=== PATIENT | male | born 1975 | race Caucasian/White ===

== ENCOUNTER → 2016-04-21 | Outpatient (REF) | payer BC ==
[~2016-04-21] MED LIST: ACTO15TA; AZAT5TAB PO; AZATPOW; BACT800T5 PO; DO NOT TAKE; FERR325T3 PO; GLIP2.5T6; GLIP5TAB8 PO; IBUP80TA PO; LIALDA; METF1000 PO; METF500T PO; METF500T4; OMEP40CA2 PO; PERC5TAB6 PO; PRIL20CA; PROAIR; SULF1TAB30 PO; SYMB80AE; [UNRECOGNIZED DRUG - OTHER]
== END ==
LOC: M LAB REF 12:29
PROVIDERS: ATTEND Internal Medicine
DX: K51.90 Ulcerative colitis, unspecified, without complications (principal)

== ENCOUNTER → 2016-06-18 | Outpatient (REF) | payer BC ==
[2016-06-18 18:00] LABS: BASO % 0.5 % (0.0-1.0); EOS # 0.1 K/mm3 (0.0-0.50); EOS % 1.4 % (0.0-3.0); LARGE UNSTAINED CELL # 0.2 K/mm3 (0.0-0.4); MEAN CORPUSCULAR HGB CONC 33.9 g/dl (32.0-36.5); MEAN CORPUSCULAR VOLUME 88.6 fl (80.0-96.0); MONO # 0.5 K/mm3 (0.0-0.8); MONO % 6.9 % (0.0-5.0); NEUTROPHILS # 3.3 K/mm3 (1.8-7.7); NEUTROPHILS % 48.3 % (36.0-66.0); PLATELET COUNT, AUTOMATED 220 k/mm3 (150-450); RED CELL DISTRIBUTION WIDTH 12.4 % (11.5-14.5); WHITE BLOOD COUNT 6.9 K/mm3 (4.0-10.0)
[2016-06-18 19:07] LABS: ALT/SGPT 68 U/L (12-78); AST/SGOT 23 U/L (15-37)
== END ==
LOC: M LABNEURO 17:16
PROVIDERS: ATTEND Psychiatry & Neurology Neurology
DX: G43.909 Migraine, unspecified, not intractable, without status migrainosus (principal)

== ENCOUNTER → 2016-08-13 | Outpatient (REF) | payer BC | LOC: M LAB REF 13:11 | PROVIDERS: ATTEND Internal Medicine | DX: K51.90 Ulcerative colitis, unspecified, without complications (principal) ==

== ENCOUNTER → 2016-11-16 | Outpatient (REF) | payer BC ==
[~2016-11-16] MED LIST changes: +AZAT50TA2 PO; -AZAT5TAB PO; -METF1000 PO; +METF10004 PO; -METF500T PO; +METF500T13 PO; +PERC5TAB12 PO; -PERC5TAB6 PO
== END ==
LOC: M LAB REF 18:15
PROVIDERS: ATTEND Internal Medicine
DX: K51.90 Ulcerative colitis, unspecified, without complications (principal)

== ENCOUNTER → 2016-12-25 | Outpatient (REF) | payer BC ==
[2016-12-25 10:14] LABS: BASO % 0.2 % (0.0-1.0); EOS # 0.1 K/mm3 (0.0-0.50); EOS % 1.5 % (0.0-3.0); LARGE UNSTAINED CELL # 0.2 K/mm3 (0.0-0.4); LARGE UNSTAINED CELL % 3.8 % (0.0-4.0); LYMPH # 1.8 K/mm3 (1.5-4.5); LYMPH % 37.9 % (24.0-44.0); MEAN CORPUSCULAR HEMOGLOBIN 32.5 pg (27.0-33.0); MEAN CORPUSCULAR HGB CONC 35.5 g/dl (32.0-36.5); MEAN CORPUSCULAR VOLUME 91.6 fl (80.0-96.0); MONO # 0.3 K/mm3 (0.0-0.8); MONO % 6.9 % (0.0-5.0); NEUTROPHILS # 2.4 K/mm3 (1.8-7.7); NEUTROPHILS % 49.7 % (36.0-66.0); PLATELET COUNT, AUTOMATED 199 k/mm3 (150-450); RED CELL DISTRIBUTION WIDTH 12.3 % (11.5-14.5); WHITE BLOOD COUNT 4.8 K/mm3 (4.0-10.0)
[2016-12-25 10:38] LABS: ALBUMIN 3.7 GM/DL (3.2-5.2); ALBUMIN/GLOBULIN RATIO 1.09 (1.00-1.93); ALKALINE PHOSPHATASE 50 U/L (45-117); ALT/SGPT 60 U/L (12-78); ANION GAP 9 MEQ/L (8-16); AST/SGOT 20 U/L (15-37); BILIRUBIN,TOTAL 0.3 MG/DL (0.2-1.0); BLOOD UREA NITROGEN 10 MG/DL (7-18); CALCIUM LEVEL 8.4 MG/DL (8.5-10.1); CARBON DIOXIDE LEVEL 24 MEQ/L (21-32); CHLORIDE LEVEL 110 MEQ/L (98-107); CREATININE FOR GFR 0.94 MG/DL (0.70-1.30); GLOMERULAR FILTRATION RATE > 60.0 (>60); GLUCOSE, FASTING 196 MG/DL (70-105); POTASSIUM SERUM 4.7 MEQ/L (3.5-5.1); SODIUM LEVEL 143 MEQ/L (136-145); TOTAL PROTEIN 7.1 GM/DL (6.4-8.2)
== END ==
LOC: M LABNEURO 09:33
PROVIDERS: ATTEND Psychiatry & Neurology Neurology
DX: G43.909 Migraine, unspecified, not intractable, without status migrainosus (principal)

== ENCOUNTER → 2017-01-05 | Outpatient (REF) | payer BC | LOC: M LAB REF 12:01 | PROVIDERS: ATTEND Internal Medicine | DX: K51.90 Ulcerative colitis, unspecified, without complications (principal) ==

== ENCOUNTER → 2017-05-25 | Outpatient (REF) | payer BC ==
[2017-05-25 20:27] LABS: C REACTIVE PROTEIN QUANTITATIV < 0.30 MG/DL (0.00-0.30)
== END ==
LOC: M LAB REF 17:34
DX: K51.90 Ulcerative colitis, unspecified, without complications (principal)
CPT/HCPCS: 86140

== ENCOUNTER → 2017-08-27 | Outpatient (REF) | payer BC ==
[2017-08-27 13:01] LABS: C REACTIVE PROTEIN QUANTITATIV 0.35 MG/DL (0.00-0.30)
[2017-09-01 17:41] LABS: QUANTIFERON GOLD TB Negative (Negative); TB Test (QFT) Antigen 0.06 IU/mL (.); TB Test (QFT) Antigen Minus Ni 0.01 IU/mL (.); TB Test (QFT) Mitogen 5.88 IU/mL (.); TB Test (QFT) Nil 0.05 IU/mL (.)
== END ==
LOC: M LAB REF 12:18
DX: K51.90 Ulcerative colitis, unspecified, without complications (principal)
CPT/HCPCS: 86140

== ENCOUNTER → 2018-01-18 | Outpatient (REF) | payer BC ==
[2018-01-18 13:30] LABS: C REACTIVE PROTEIN QUANTITATIV < 0.30 MG/DL (0.00-0.30)
== END ==
LOC: M LAB REF 13:00
DX: K51.90 Ulcerative colitis, unspecified, without complications (principal)

== ENCOUNTER → 2018-05-10 | Outpatient (REF) | payer BC | LOC: M LAB REF 12:13 | PROVIDERS: ATTEND Internal Medicine | DX: K51.90 Ulcerative colitis, unspecified, without complications (principal) ==

== ENCOUNTER → 2018-06-06 | Outpatient (REF) | payer BC ==
[2018-06-06 18:52] LABS: INFLUENZA A AMPLIFICATION NEGATIVE (NEGATIVE); INFLUENZA B AMPLIFICATION NEGATIVE (NEGATIVE)
== END ==
LOC: M LAB REF 16:53
PROVIDERS: ATTEND Nurse Practitioner Adult Health
DX: J06.9 Acute upper respiratory infection, unspecified (principal)

== ENCOUNTER → 2018-06-29 | Outpatient (CLI) | payer BC ==
--- NOTE | 2018-06-29 14:09 | REP ---
Clinical: Asthma . Comparison: 03/21/2012 . Technique: PA and lateral. Findings: The mediastinum and cardiac silhouette are normal. The lung arechiga are clear and without acute consolidation, effusion, or pneumothorax. The skeletal structures are intact and normal. Impression: 1. No acute cardiopulmonary process. Electronically Signed by Royer Cohn MD 06/29/2018 02:01 P
== END ==
LOC: M WUC 11:16
PROVIDERS: ATTEND Internal Medicine
DX: J45.901 Unspecified asthma with (acute) exacerbation (principal)

== ENCOUNTER → 2018-07-15 | Outpatient (CLI) | payer BC ==
--- NOTE | 2018-07-15 10:01 | REP ---
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 Comparison is 12/19/2015. There is no cholelithiasis, gallbladder wall thickening or pericholecystic fluid. There is no intrahepatic or extrahepatic biliary duct dilatation. The common biliary duct measures 3.7 mm in diameter. The hepatic parenchyma demonstrates mild fatty infiltration. 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 The visualized hepatic parenchyma is unremarkable. There is no right renal calculus, hydronephrosis, mass or cyst. The right kidney is normal size measuring 13.3 x 6.5 x 5.8 cm. The visualized aorta demonstrates no aneurysm. There is no right upper quadrant ascites. The study is of limited quality because of interfering bowel gas. Impression: Limited study because of interfering bowel gas. Mild fatty infiltration of the liver. Otherwise, negative abdominal right upper quadrant ultrasound. Electronically Signed by Saji Marti MD 07/15/2018 09:53 A
== END ==
LOC: M RAD 08:25
PROVIDERS: ATTEND Internal Medicine Gastroenterology
DX: K51.90 Ulcerative colitis, unspecified, without complications (principal); R94.5 Abnormal results of liver function studies; K21.9 Gastro-esophageal reflux disease without esophagitis; K75.81 Nonalcoholic steatohepatitis (NASH); E55.9 Vitamin D deficiency, unspecified; Q43.3 Congenital malformations of intestinal fixation

== ENCOUNTER → 2018-08-31 | Outpatient (CLI) | payer BC ==
[2018-08-31 11:06] LABS: HEMATOCRIT 46.2 % (42.0-52.0); HEMOGLOBIN 15.8 g/dl (13.5-17.5); MEAN CORPUSCULAR HEMOGLOBIN 31.1 pg (27.0-33.0); MEAN CORPUSCULAR HGB CONC 34.2 g/dl (32.0-36.5); MEAN CORPUSCULAR VOLUME 90.9 fl (80.0-96.0); PLATELET COUNT, AUTOMATED 193 10^3/uL (150-450); RED BLOOD COUNT 5.08 10^6/uL (4.30-6.10); WHITE BLOOD COUNT 5.1 10^3/uL (4.0-10.0)
[2018-08-31 11:15] LABS: INR 1.03; PROTHROMBIN TIME 13.7 SECONDS (12.1-14.4)
[2018-08-31 11:20] LABS: ALBUMIN 3.9 GM/DL (3.2-5.2); ALT/SGPT 92 U/L (12-78); BILIRUBIN,TOTAL 0.6 MG/DL (0.2-1.0); BLOOD UREA NITROGEN 12 MG/DL (7-18); CALCIUM LEVEL 8.4 MG/DL (8.5-10.1); CARBON DIOXIDE LEVEL 29 MEQ/L (21-32); CHLORIDE LEVEL 106 MEQ/L (98-107); CREATININE FOR GFR 0.85 MG/DL (0.70-1.30); GLOMERULAR FILTRATION RATE > 60.0 (>60); GLUCOSE, FASTING 171 MG/DL (70-100); POTASSIUM SERUM 4.5 MEQ/L (3.5-5.1); SODIUM LEVEL 142 MEQ/L (136-145); TOTAL PROTEIN 7.4 GM/DL (6.4-8.2)
[2018-08-31 11:26] LABS: TOTAL 25(OH) VITAMIN D 17.7 NG/ML (30.0-100.0)
[2018-08-31 11:27] LABS: VITAMIN B12 LEVEL 579 PG/ML (247-911)
[2018-08-31 11:34] LABS: ERYTHROCYTE SEDIMENTATION RATE 3 mm/hr (0-15)
== END ==
LOC: M SMT 08:06
PROVIDERS: ATTEND Internal Medicine Gastroenterology
DX: K51.90 Ulcerative colitis, unspecified, without complications (principal); R94.5 Abnormal results of liver function studies; K21.9 Gastro-esophageal reflux disease without esophagitis

== ENCOUNTER → 2018-12-02 | Outpatient (CLI) | payer BC ==
[~2018-12-02] MED LIST changes: -OMEP40CA2 PO; +OMEP40CA97 PO
[2018-12-02 17:55] LABS: HEMATOCRIT 43.6 % (42.0-52.0); HEMOGLOBIN 15.3 g/dl (13.5-17.5); MEAN CORPUSCULAR HEMOGLOBIN 32.3 pg (27.0-33.0); MEAN CORPUSCULAR HGB CONC 35.1 g/dl (32.0-36.5); PLATELET COUNT, AUTOMATED 216 10^3/uL (150-450); RED BLOOD COUNT 4.74 10^6/uL (4.30-6.10); WHITE BLOOD COUNT 6.7 10^3/uL (4.0-10.0)
[2018-12-02 17:58] LABS: ALT/SGPT 59 U/L (12-78); BILIRUBIN,TOTAL 0.3 MG/DL (0.2-1.0); BLOOD UREA NITROGEN 13 MG/DL (7-18); C REACTIVE PROTEIN QUANTITATIV < 0.30 MG/DL (0.00-0.30); CALCIUM LEVEL 8.6 MG/DL (8.5-10.1); CARBON DIOXIDE LEVEL 27 MEQ/L (21-32); CHLORIDE LEVEL 107 MEQ/L (98-107); CREATININE FOR GFR 0.88 MG/DL (0.70-1.30); GLOMERULAR FILTRATION RATE > 60.0 (>60); GLUCOSE, FASTING 199 MG/DL (70-100); POTASSIUM SERUM 4.1 MEQ/L (3.5-5.1); SODIUM LEVEL 140 MEQ/L (136-145); TOTAL PROTEIN 7.2 GM/DL (6.4-8.2)
[2018-12-02 19:17] LABS: ERYTHROCYTE SEDIMENTATION RATE 4 mm/hr (0-15)
== END ==
LOC: M SMT 14:46
PROVIDERS: ATTEND Internal Medicine Gastroenterology
DX: K51.90 Ulcerative colitis, unspecified, without complications (principal)

== ENCOUNTER → 2019-02-15 | Outpatient (CLI) | payer BC ==
[2019-02-15 16:15] LABS: HEMATOCRIT 47.3 % (42.0-52.0); HEMOGLOBIN 15.7 g/dl (13.5-17.5); MEAN CORPUSCULAR HEMOGLOBIN 30.6 pg (27.0-33.0); MEAN CORPUSCULAR HGB CONC 33.2 g/dl (32.0-36.5); MEAN CORPUSCULAR VOLUME 92.2 fl (80.0-96.0); PLATELET COUNT, AUTOMATED 238 10^3/uL (150-450); RED BLOOD COUNT 5.13 10^6/uL (4.30-6.10); WHITE BLOOD COUNT 7.7 10^3/uL (4.0-10.0)
[2019-02-15 16:21] LABS: ALBUMIN 4.1 GM/DL (3.2-5.2); ALT/SGPT 71 U/L (12-78); BILIRUBIN,TOTAL 0.5 MG/DL (0.2-1.0); BLOOD UREA NITROGEN 13 MG/DL (7-18); C REACTIVE PROTEIN QUANTITATIV < 0.30 MG/DL (0.00-0.30); CALCIUM LEVEL 9.4 MG/DL (8.5-10.1); CARBON DIOXIDE LEVEL 27 MEQ/L (21-32); CHLORIDE LEVEL 106 MEQ/L (98-107); CREATININE FOR GFR 0.85 MG/DL (0.70-1.30); GLOMERULAR FILTRATION RATE > 60.0 (>60); GLUCOSE, FASTING 195 MG/DL (70-100); POTASSIUM SERUM 4.2 MEQ/L (3.5-5.1); SODIUM LEVEL 139 MEQ/L (136-145); TOTAL PROTEIN 7.5 GM/DL (6.4-8.2)
[2019-02-15 16:59] LABS: ERYTHROCYTE SEDIMENTATION RATE 3 mm/hr (0-15)
== END ==
LOC: M SMT 13:09
PROVIDERS: ATTEND Internal Medicine Gastroenterology
DX: K51.90 Ulcerative colitis, unspecified, without complications (principal)

== ENCOUNTER → 2019-05-06 | Outpatient (REF) | payer BC | LOC: M SFHCLERA 17:04 | PROVIDERS: ATTEND Nurse Practitioner Family | DX: J00 Acute nasopharyngitis [common cold] (principal) ==

== ENCOUNTER 2019-07-19 19:26 | Emergency (ER) | payer BC ==
[~2019-07-19] VITALS: Ht 182.9 cm; Wt 107.3 kg
[2019-07-19] MEDS ORDERED: TOPI50TA9 PO (19:39)
[2019-07-19] MEDS ORDERED: METF-791 PO (19:39)
[2019-07-19] MEDS ORDERED: METO1TAB32 PO (19:39)
[2019-07-19] MEDS ORDERED: SYMB16INH INH (19:40)
[2019-07-19] MEDS ORDERED: TRUL0.5I PO (19:40)
[2019-07-19] MEDS ORDERED: VITA200012 PO (19:40)
[2019-07-19] MEDS ORDERED: RIZA10TA58 PO (19:40)
[2019-07-19] MEDS ORDERED: GABA-843 PO (19:40)
[2019-07-19] MEDS ORDERED: INFL10VL IV (19:40)
[2019-07-19] MEDS ORDERED: PROAAER10 INH (19:40)
[2019-07-19] MEDS ORDERED: KETOROLAC 30 MG/ML 1ML VIAL (J1885 PER 15MG) IV ONE (20:00)
[2019-07-19] MEDS ORDERED: NS 1,000 ML IV ONE (20:00)
[2019-07-19 20:04] LABS: BASO # 0.1 10^3/uL (0.0-0.2); BASO % 0.5 % (0.0-1.0); EOS # 0.1 10^3/uL (0.0-0.5); EOS % 0.9 % (0.0-3.0); HEMATOCRIT 44.1 % (42.0-52.0); HEMOGLOBIN 15.3 g/dl (13.5-17.5); LYMPH % 32.4 % (24.0-44.0); MEAN CORPUSCULAR HEMOGLOBIN 30.7 pg (27.0-33.0); MEAN CORPUSCULAR HGB CONC 34.7 g/dl (32.0-36.5); MEAN CORPUSCULAR VOLUME 88.6 fl (80.0-96.0); MONO # 0.6 10^3/uL (0.0-0.8); MONO % 6.5 % (0.0-5.0); NEUTROPHILS # 5.5 10^3/uL (1.5-8.5); NEUTROPHILS % 59.4 % (36.0-66.0); PLATELET COUNT, AUTOMATED 233 10^3/uL (150-450); RED BLOOD COUNT 4.98 10^6/uL (4.30-6.10); WHITE BLOOD COUNT 9.2 10^3/uL (4.0-10.0)
[2019-07-19 20:32] LABS: ALBUMIN 4.2 GM/DL (3.2-5.2); BILIRUBIN,DIRECT 0.1 MG/DL (0.0-0.2); BILIRUBIN,TOTAL 0.4 MG/DL (0.2-1.0); TOTAL PROTEIN 7.6 GM/DL (6.4-8.2)
--- NOTE | 2019-07-19 20:33 | REPVR ---
PROCEDURE INFORMATION: Exam: CT Abdomen And Pelvis Without Contrast Exam date and time: 07/19/2019 8:19 PM Age: 44 years old Clinical indication: Abdominal pain; Flank; Right; Additional info: R flank pain TECHNIQUE: Imaging protocol: Computed tomography of the abdomen and pelvis without contrast. Radiation optimization: All CT scans at this facility use at least one of these dose optimization techniques: automated exposure control; mA and/or kV adjustment per patient size (includes targeted exams where dose is matched to clinical indication); or iterative reconstruction. COMPARISON: LIVER US 07/15/2018 8:37 AM FINDINGS: Liver: Normal. No mass. Gallbladder and bile ducts: Normal. No calcified stones. No ductal dilation. Pancreas: Diffuse pancreatic atrophy. Spleen: There is mild splenomegaly with a maximum span of 14 centimeters. No focal abnormalities demonstrated. Adrenals: Normal. No mass. Kidneys and ureters: Punctate nonobstructive calculus lower pole right kidney. There is a 4mm. obstructive ureteral calculus located distal right resulting in [id number] proximal hydroureteronephrosis. There is minimal periureteral and perinephric stranding. No urinoma demonstrated. Stomach and bowel: Mural stratification demonstrated in the rectosigmoid colon and to a lesser degree the left colon likely related to patient body habitus and lack of distention. Clinical correlation to exclude changes related to chronic colitis suggested. Appendix: No evidence of appendicitis. Intraperitoneal space: Unremarkable. No free air. No significant fluid collection. Vasculature: Unremarkable. No abdominal aortic aneurysm. Lymph nodes: Unremarkable. No enlarged lymph nodes. Bladder: Unremarkable as visualized. Reproductive: The prostate gland demonstrates mild hyperplasia. Bones/joints: [id number] central spinal stenosis L3-L4 and L4-L5. Soft tissues: There is a small umbilical hernia. There is no evidence of incarceration. IMPRESSION: 1. There is mild splenomegaly with a maximum span of 14 centimeters. No focal abnormalities demonstrated. 2. Diffuse pancreatic atrophy. 3. Punctate nonobstructive calculus lower pole right kidney. 4. There is a 4mm. obstructive ureteral calculus located distal right resulting in [id number] proximal hydroureteronephrosis. There is minimal periureteral and perinephric stranding. No urinoma demonstrated. 5. Mild prostatic hyperplasia. 6. Mural stratification demonstrated in the rectosigmoid colon and to a lesser degree the left colon likely related to patient body habitus and lack of distention. Clinical correlation to exclude changes related to chronic colitis suggested. Electronically signed by: Alexei Joseph On 07/19/2019 20:33:52 PM
[2019-07-19 20:58] VITALS: BP 135/80
[2019-07-19] MEDS ORDERED: KETO10TAB PO (21:04)
[2019-07-19] MEDS ORDERED: FLOM0.4C39 PO (21:04)
[2019-07-19] MEDS ORDERED: TAMSULOSIN 0.4 MG CAP PO ONE (21:15)
[2019-07-19] MEDS ORDERED: NORCO 5/325MG TABLET (BULK FOR ED) PO ONE (21:15)
--- NOTE | 2019-07-21 06:33 | ED PDOC ---
Post-Departure Follow-Up dr gómez faxed formal report of ct abd/p for fu Stefano Cedillo MD Jul 21, 2019 06:32
== END 2019-07-19 21:21 | disposition home or self-care (01) ==
LOC: M ED 19:26
DX: N40.0 Benign prostatic hyperplasia without lower urinary tract symptoms (principal); N20.0 Calculus of kidney; R16.1 Splenomegaly, not elsewhere classified; E11.9 Type 2 diabetes mellitus without complications; I10 Essential (primary) hypertension; J45.909 Unspecified asthma, uncomplicated; G43.909 Migraine, unspecified, not intractable, without status migrainosus; K51.90 Ulcerative colitis, unspecified, without complications; Z79.84 Long term (current) use of oral hypoglycemic drugs; Z79.899 Other long term (current) drug therapy
CPT/HCPCS: 74176; 80047; 80076; 81001; 83690; 85025; 96361; 96374; 99284; J1885

== ENCOUNTER → 2019-07-25 | Outpatient (REF) | payer BC ==
[~2019-07-25] MED LIST changes: +FLOM0.4C39 PO; +GABA-843 PO; +INFL10VL IV; +KETO10TAB PO; +METF-791 PO; +METO1TAB32 PO; +PROAAER10 INH; +RIZA10TA58 PO; +SYMB16INH INH; +TOPI50TA9 PO; +TRUL0.5I PO; +VITA200012 PO
== END ==
LOC: M LAB REF 12:48
PROVIDERS: ATTEND Internal Medicine
DX: K51.90 Ulcerative colitis, unspecified, without complications (principal)

== ENCOUNTER → 2019-08-15 | Outpatient (REF) | payer BC ==
[~2019-08-15] MED LIST changes: +GABA-282 PO; -GABA-843 PO; -METF-791 PO; +METF-838 PO
[2019-08-24 00:06] LABS: CA Hydro Phos 10 % (.); Ca Ox Monohydrate 40 % (.); Size 4x3 mm (.)
== END ==
LOC: M SMT 12:50
PROVIDERS: ATTEND Nurse Practitioner Women's Health
DX: N20.0 Calculus of kidney (principal)

== ENCOUNTER → 2019-09-12 | Outpatient (REF) | payer BC ==
[~2019-09-12] MED LIST changes: -GABA-282 PO; +GABA-843 PO
== END ==
LOC: M LAB REF 15:58
PROVIDERS: ATTEND Internal Medicine
DX: K51.90 Ulcerative colitis, unspecified, without complications (principal)

== ENCOUNTER → 2020-03-03 | Outpatient (CLI) | payer SELFPAY | LOC: M LABSMTC 10:04 | PROVIDERS: ATTEND Pediatrics | DX: Z20.828 Contact with and (suspected) exposure to other viral communicable diseases (principal) ==

== ENCOUNTER → 2020-03-21 | Outpatient (REF) | payer BC | LOC: M LAB REF 16:16 | PROVIDERS: ATTEND Internal Medicine | DX: K51.90 Ulcerative colitis, unspecified, without complications (principal) ==

== ENCOUNTER → 2020-03-21 | Outpatient (REF) | payer BC | LOC: M LAB REF 17:19 | PROVIDERS: ATTEND Surgery | DX: L72.3 Sebaceous cyst (principal) ==

== ENCOUNTER 2020-06-03 01:19 | Emergency (ER) | payer BC ==
[~2020-06-03] VITALS: Ht 182.9 cm; Wt 105.7 kg
[~2020-06-03 01:19] MED LIST changes: +GABA-282 PO; -GABA-843 PO
[2020-06-03] MEDS ORDERED: NS 1,000 ML IV ONE (01:45)
[2020-06-03] MEDS ORDERED: TAMSULOSIN 0.4 MG CAP PO ONE (01:45)
[2020-06-03] MEDS ORDERED: KETOROLAC 30 MG/ML 1ML VIAL IV ONE (01:45)
[2020-06-03 02:06] LABS: BASO % 0.5 % (0.0-1.0); EOS # 0.1 10^3/uL (0.0-0.5); EOS % 1.6 % (0.0-3.0); HEMATOCRIT 46.7 % (42.0-52.0); HEMOGLOBIN 15.6 g/dl (13.5-17.5); LYMPH # 3.3 10^3/uL (1.5-5.0); LYMPH % 37.6 % (24.0-44.0); MEAN CORPUSCULAR HEMOGLOBIN 30.2 pg (27.0-33.0); MEAN CORPUSCULAR HGB CONC 33.4 g/dl (32.0-36.5); MEAN CORPUSCULAR VOLUME 90.5 fl (80.0-96.0); MONO # 0.7 10^3/uL (0.0-0.8); MONO % 7.9 % (2.0-8.0); NEUTROPHILS # 4.5 10^3/uL (1.5-8.5); NEUTROPHILS % 52.2 % (36.0-66.0); PLATELET COUNT, AUTOMATED 233 10^3/uL (150-450); RED BLOOD COUNT 5.16 10^6/uL (4.30-6.10); WHITE BLOOD COUNT 8.7 10^3/uL (4.0-10.0)
--- NOTE | 2020-06-03 02:18 | REPVR ---
PROCEDURE INFORMATION: Exam: CT Abdomen And Pelvis Without Contrast Exam date and time: 06/03/2020 2:02 AM Age: 44 years old Clinical indication: Abdominal pain; Flank; Left; Additional info: Flank pain / suspected ureterolith TECHNIQUE: Imaging protocol: Computed tomography of the abdomen and pelvis without contrast. Radiation optimization: All CT scans at this facility use at least one of these dose optimization techniques: automated exposure control; mA and/or kV adjustment per patient size (includes targeted exams where dose is matched to clinical indication); or iterative reconstruction. COMPARISON: 1. CT ABD PELVIS W/O CONTRAST 2019-07-19 20:14 2. LIVER US 2018-07-15 08:37 FINDINGS: Liver: Normal. No mass. Gallbladder and bile ducts: Normal. No calcified stones. No ductal dilation. Pancreas: Pancreas atrophy. Spleen: Normal. No splenomegaly. Adrenal glands: Normal. No mass. Kidneys and ureters: 2 mm left vesicoureteral junction calculus causes mild to moderate left renal collecting system dilatation/hydronephrosis. Left renal swelling. Stomach and bowel: Gastric distension. Appendix: No evidence of appendicitis. Intraperitoneal space: Unremarkable. No free air. No significant fluid collection. Vasculature: Unremarkable. No abdominal aortic aneurysm. Lymph nodes: Unremarkable. No enlarged lymph nodes. Urinary bladder: Unremarkable as visualized. Reproductive: Unremarkable as visualized. Bones/joints: Mild lumbar spondylosis. Soft tissues: Small fat protruding umbilical hernia. IMPRESSION: 2 mm left vesicoureteral junction calculus causes mild to moderate left renal collecting system dilatation/hydronephrosis. Electronically signed by: Nik Cabral On 06/03/2020 02:18:31 AM
[2020-06-03 02:29] LABS: ALBUMIN 4.1 GM/DL (3.2-5.2); ALT/SGPT 69 U/L (12-78); BILIRUBIN,DIRECT < 0.1 MG/DL (0.0-0.2); BILIRUBIN,TOTAL 0.2 MG/DL (0.2-1.0); LIPASE 49 U/L (73-393); TOTAL PROTEIN 7.6 GM/DL (6.4-8.2)
[2020-06-03] MEDS ORDERED: PERCOCET 5MG/325MG TAB PO ONE (02:40)
[2020-06-03] MEDS ORDERED: FLOM0.4C39 PO (02:49)
[2020-06-03] MEDS ORDERED: PERC5TAB12 PO (02:49)
[2020-06-03] MEDS ORDERED: IBUP80TA PO (02:49)
[2020-06-03 03:04] LABS: BLOOD UREA NITROGEN 11 MG/DL (7-18); CALCIUM LEVEL 8.6 MG/DL (8.5-10.1); CARBON DIOXIDE LEVEL 25 MEQ/L (21-32); CHLORIDE LEVEL 108 MEQ/L (98-107); CREATININE FOR GFR 0.98 MG/DL (0.70-1.30); GLOMERULAR FILTRATION RATE > 60.0 (>60); GLUCOSE, FASTING 259 MG/DL (70-100); POTASSIUM SERUM 3.9 MEQ/L (3.5-5.1); SODIUM LEVEL 142 MEQ/L (136-145)
[2020-06-03 03:15] VITALS: BP 152/97
== END 2020-06-03 03:50 | disposition home or self-care (01) ==
LOC: M ED 01:19
DX: N20.1 Calculus of ureter (principal); E11.9 Type 2 diabetes mellitus without complications; Z79.899 Other long term (current) drug therapy; Z79.84 Long term (current) use of oral hypoglycemic drugs
CPT/HCPCS: 74176; 80048; 80076; 81001; 83690; 85025; 93041; 96361; 96374; 99284; J1885

== ENCOUNTER → 2020-10-15 | Outpatient (REF) | payer BC ==
[~2020-10-15] MED LIST changes: +OMEP40CA4 PO; -OMEP40CA97 PO
== END ==
LOC: M LAB REF 16:35
PROVIDERS: ATTEND Internal Medicine
DX: K51.90 Ulcerative colitis, unspecified, without complications (principal)

== ENCOUNTER 2021-04-08 09:45 | Outpatient (CLI) | payer BC ==
[~2021-04-08] VITALS: Ht 180.3 cm; Wt 109.0 kg
[2021-04-08 09:50] VITALS: BP 165/91
[2021-04-08] MEDS ORDERED: NS 1,000 ML IV SCH (10:00)
[2021-04-08] MEDS ORDERED: INFLIXIMAB BIOSIMILAR 600 MG in NS 190 ML IV ONE (10:00)
[2021-04-08] MEDS ORDERED: ACETAMINOPHEN 650MG PO PRIOR TO INFUSION PO ONE (10:00)
[2021-04-08 10:24] VITALS: BP 165/91
[2021-04-08 10:39] VITALS: BP 148/88
[2021-04-08 11:31] VITALS: BP 150/86
== END 2021-04-08 11:35 | disposition home or self-care (01) ==
LOC: M INFU 09:45
PROVIDERS: ATTEND Internal Medicine Gastroenterology
DX: K51.90 Ulcerative colitis, unspecified, without complications (principal)
CPT/HCPCS: 96365; Q5103

== ENCOUNTER → 2021-04-21 | Outpatient (CLI) | payer BC | LOC: M LABSMTC 10:40 | PROVIDERS: ATTEND Pediatrics | DX: Z11.52 Encounter for screening for COVID-19 (principal) ==

== ENCOUNTER → 2021-05-20 | Outpatient (CLI) | payer BC ==
[2021-05-20 14:33] LABS: HEMATOCRIT 45.6 % (42.0-52.0); HEMOGLOBIN 15.7 g/dl (13.5-17.5); MEAN CORPUSCULAR HEMOGLOBIN 30.8 pg (27.0-33.0); MEAN CORPUSCULAR HGB CONC 34.4 g/dl (32.0-36.5); MEAN CORPUSCULAR VOLUME 89.6 fl (80.0-96.0); PLATELET COUNT, AUTOMATED 187 10^3/uL (150-450); RED BLOOD COUNT 5.09 10^6/uL (4.30-6.10); WHITE BLOOD COUNT 7.1 10^3/uL (4.0-10.0)
[2021-05-20 14:51] LABS: ALBUMIN 3.9 GM/DL (3.2-5.2); ALT/SGPT 111 U/L (12-78); BILIRUBIN,TOTAL 0.6 MG/DL (0.2-1.0); BLOOD UREA NITROGEN 9 MG/DL (7-18); C REACTIVE PROTEIN QUANTITATIV 0.49 MG/DL (0.00-0.30); CALCIUM LEVEL 9.2 MG/DL (8.5-10.1); CARBON DIOXIDE LEVEL 31 MEQ/L (21-32); CHLORIDE LEVEL 102 MEQ/L (98-107); CREATININE FOR GFR 0.81 MG/DL (0.70-1.30); GLOMERULAR FILTRATION RATE > 60.0 (>60); GLUCOSE, FASTING 268 MG/DL (70-100); POTASSIUM SERUM 4.2 MEQ/L (3.5-5.1); SODIUM LEVEL 137 MEQ/L (136-145); TOTAL PROTEIN 7.4 GM/DL (6.4-8.2)
[2021-05-20 14:53] LABS: ERYTHROCYTE SEDIMENTATION RATE 4 mm/hr (0-15)
== END ==
LOC: M LAB 13:47
PROVIDERS: ATTEND Internal Medicine Gastroenterology
DX: R94.5 Abnormal results of liver function studies (principal); K51.90 Ulcerative colitis, unspecified, without complications; R16.1 Splenomegaly, not elsewhere classified

== ENCOUNTER 2021-06-03 09:43 | Outpatient (CLI) | payer BC ==
[~2021-06-03] VITALS: Ht 182.9 cm; Wt 109.1 kg
[2021-06-03] MEDS ORDERED: NS 1,000 ML IV SCH (10:00)
[2021-06-03] MEDS ORDERED: ACETAMINOPHEN 650MG PO PRIOR TO INFUSION PO ONE (10:00)
[2021-06-03] MEDS ORDERED: INFLIXIMAB BIOSIMILAR 600 MG in NS 190 ML IV ONE (10:00)
[2021-06-03 10:09] VITALS: BP 164/97
[2021-06-03 10:30] VITALS: BP 144/75
[2021-06-03 11:30] VITALS: BP 149/82
== END 2021-06-03 11:30 | disposition home or self-care (01) ==
LOC: M INFU 09:43
PROVIDERS: ATTEND Internal Medicine Gastroenterology
DX: K51.90 Ulcerative colitis, unspecified, without complications (principal)
CPT/HCPCS: 96413; Q5103

== ENCOUNTER 2021-07-29 09:41 | Outpatient (CLI) | payer BC ==
[2021-07-29] MEDS ORDERED: ACETAMINOPHEN 650MG PO PRIOR TO INFUSION PO ONE (10:00)
[2021-07-29] MEDS ORDERED: NS 1,000 ML IV SCH (10:00)
[2021-07-29] MEDS ORDERED: INFLIXIMAB BIOSIMILAR 600 MG in NS 190 ML IV ONE (10:00)
[2021-07-29 10:24] VITALS: BP 140/93
[2021-07-29 11:45] VITALS: BP 147/89
== END 2021-07-29 11:51 | disposition home or self-care (01) ==
LOC: M INFU 09:41
PROVIDERS: ATTEND Internal Medicine Gastroenterology
DX: K51.90 Ulcerative colitis, unspecified, without complications (principal)
CPT/HCPCS: 96413; Q5103

== ENCOUNTER 2021-09-23 07:00 | Outpatient (CLI) | payer BC ==
[~2021-09-23] VITALS: Ht 177.8 cm; Wt 108.4 kg
[~2021-09-23 07:00] MED LIST changes: -AZAT50TA2 PO; +AZAT50TA37 PO; +INFLIXIMAB BIOSIMILAR 600 MG in NS 190 ML IV ONE; +NS 1,000 ML IV SCH
[2021-09-23 07:10] VITALS: BP 157/64
[2021-09-23 08:46] VITALS: BP 157/95
== END 2021-09-23 08:45 | disposition home or self-care (01) ==
LOC: M INFU 07:00
PROVIDERS: ATTEND Internal Medicine Gastroenterology
DX: K51.90 Ulcerative colitis, unspecified, without complications (principal)
CPT/HCPCS: 96413; Q5103

== ENCOUNTER → 2021-10-14 | Outpatient (CLI) | payer BC ==
[~2021-10-14] MED LIST changes: -INFLIXIMAB BIOSIMILAR 600 MG in NS 190 ML IV ONE; -NS 1,000 ML IV SCH
[2021-10-14 10:54] LABS: HEMATOCRIT 43.4 % (42.0-52.0); HEMOGLOBIN 14.7 g/dl (13.5-17.5); MEAN CORPUSCULAR HEMOGLOBIN 30.2 pg (27.0-33.0); MEAN CORPUSCULAR HGB CONC 33.9 g/dl (32.0-36.5); MEAN CORPUSCULAR VOLUME 89.3 fl (80.0-96.0); PLATELET COUNT, AUTOMATED 209 10^3/uL (150-450); RED BLOOD COUNT 4.86 10^6/uL (4.30-6.10); WHITE BLOOD COUNT 6.9 10^3/uL (4.0-10.0)
[2021-10-14 11:36] LABS: ERYTHROCYTE SEDIMENTATION RATE 9 mm/hr (0-15)
[2021-10-14 12:02] LABS: ALBUMIN 3.9 GM/DL (3.2-5.2); ALT/SGPT 39 U/L (12-78); BILIRUBIN,TOTAL 0.4 MG/DL (0.2-1.0); BLOOD UREA NITROGEN 8 MG/DL (7-18); C REACTIVE PROTEIN QUANTITATIV 0.62 MG/DL (0.00-0.30); CALCIUM LEVEL 9.3 MG/DL (8.5-10.1); CARBON DIOXIDE LEVEL 29 MEQ/L (21-32); CHLORIDE LEVEL 105 MEQ/L (98-107); CREATININE FOR GFR 0.84 MG/DL (0.70-1.30); GLOMERULAR FILTRATION RATE > 60.0 (>60); GLUCOSE, FASTING 190 MG/DL (70-100); POTASSIUM SERUM 4.3 MEQ/L (3.5-5.1); SODIUM LEVEL 138 MEQ/L (136-145); TOTAL PROTEIN 7.3 GM/DL (6.4-8.2)
== END ==
LOC: M LAB 09:59
PROVIDERS: ATTEND Internal Medicine Gastroenterology
DX: K57.90 Diverticulosis of intestine, part unspecified, without perforation or abscess without bleeding (principal); K21.9 Gastro-esophageal reflux disease without esophagitis; M06.4 Inflammatory polyarthropathy; R94.5 Abnormal results of liver function studies

== ENCOUNTER 2021-11-18 09:00 | Outpatient (CLI) | payer BC ==
[~2021-11-18] VITALS: Ht 182.9 cm; Wt 104.5 kg
[~2021-11-18 09:00] MED LIST changes: +ACETAMINOPHEN 650MG PO PRIOR TO INFUSION PO ONE; +INFLIXIMAB BIOSIMILAR 600 MG in NS 190 ML IV ONE; +NS 1,000 ML IV SCH
[2021-11-18 09:18] VITALS: BP 136/85
[2021-11-18 10:02] VITALS: BP 133/81
[2021-11-18 11:01] VITALS: BP 134/81
== END 2021-11-18 11:03 | disposition home or self-care (01) ==
LOC: M INFU 09:00
PROVIDERS: ATTEND Internal Medicine Gastroenterology
DX: K51.90 Ulcerative colitis, unspecified, without complications (principal)
CPT/HCPCS: 96413; Q5103

== ENCOUNTER → 2022-01-06 | Outpatient (CLI) | payer BC ==
[~2022-01-06] MED LIST changes: -ACETAMINOPHEN 650MG PO PRIOR TO INFUSION PO ONE; +E-Z-GAS II EFFERVESCENT PACKET (SODIUM BICARB./CITRIC ACID/SIMETHICONE) As Ordered ONE; +E-Z-HD 98% w/w 340GM SUSP BTL As Ordered ONE; +E-Z-PAQUE 96% w/w SUSP 176GM BTL As Ordered ONE; -INFLIXIMAB BIOSIMILAR 600 MG in NS 190 ML IV ONE; -NS 1,000 ML IV SCH
== END ==
LOC: M RAD 09:06
PROVIDERS: ATTEND Internal Medicine
DX: R10.13 Epigastric pain (principal)

== ENCOUNTER 2022-01-13 08:40 | Outpatient (CLI) | payer BC ==
[~2022-01-13] VITALS: Ht 182.9 cm; Wt 103.6 kg
[2022-01-13 08:40] VITALS: BP 166/81
[~2022-01-13 08:40] MED LIST changes: -E-Z-GAS II EFFERVESCENT PACKET (SODIUM BICARB./CITRIC ACID/SIMETHICONE) As Ordered ONE; -E-Z-HD 98% w/w 340GM SUSP BTL As Ordered ONE; -E-Z-PAQUE 96% w/w SUSP 176GM BTL As Ordered ONE; -TRUL0.5I PO; +TRUL0.5I SQ
[2022-01-13] MEDS ORDERED: ACETAMINOPHEN 650MG PO PRIOR TO INFUSION PO ONE (09:45)
[2022-01-13] MEDS ORDERED: NS 1,000 ML IV SCH (09:45)
[2022-01-13] MEDS ORDERED: INFLIXIMAB BIOSIMILAR 600 MG in NS 190 ML IV ONE (09:45)
[2022-01-13] MEDS ORDERED: JARD1TAB PO (10:25)
[2022-01-13] MEDS ORDERED: SUCR1TA PO (10:25)
[2022-01-13] MEDS ORDERED: AMIT50TA PO (10:25)
[2022-01-13] MEDS ORDERED: LOSA50TA28 PO (10:25)
[2022-01-13 10:44] VITALS: BP 119/77
[2022-01-13 10:46] VITALS: BP 119/77
[2022-01-13 11:30] VITALS: BP 138/77
== END 2022-01-13 11:30 | disposition home or self-care (01) ==
LOC: M INFU 08:40
PROVIDERS: ATTEND Internal Medicine Gastroenterology
DX: K51.90 Ulcerative colitis, unspecified, without complications (principal)
CPT/HCPCS: 96413; Q5103

== ENCOUNTER 2022-03-10 14:00 | Outpatient (CLI) | payer BC ==
[~2022-03-10] VITALS: Ht 182.9 cm; Wt 103.6 kg
[2022-03-10 09:14] VITALS: BP 143/92
[~2022-03-10 14:00] MED LIST changes: +ACETAMINOPHEN 650MG PO PRIOR TO INFUSION PO ONE; +AMIT50TA PO; +INFLIXIMAB BIOSIMILAR 600 MG in NS 190 ML IV ONE; +JARD1TAB PO; +LOSA50TA28 PO; +NS 1,000 ML IV SCH; +SUCR1TA PO
[2022-03-10 15:14] VITALS: BP 141/81
== END 2022-03-10 15:20 | disposition home or self-care (01) ==
LOC: M INFU 14:00
PROVIDERS: ATTEND Internal Medicine Gastroenterology
DX: K51.90 Ulcerative colitis, unspecified, without complications (principal)
CPT/HCPCS: 96413; Q5103

== ENCOUNTER → 2022-04-14 | Outpatient (CLI) | payer BC ==
[~2022-04-14] MED LIST changes: -ACETAMINOPHEN 650MG PO PRIOR TO INFUSION PO ONE; -INFLIXIMAB BIOSIMILAR 600 MG in NS 190 ML IV ONE; -NS 1,000 ML IV SCH
[2022-04-14 10:53] LABS: HEMATOCRIT 44.4 % (42.0-52.0); HEMOGLOBIN 14.8 g/dl (13.5-17.5); MEAN CORPUSCULAR HEMOGLOBIN 29.7 pg (27.0-33.0); MEAN CORPUSCULAR HGB CONC 33.3 g/dl (32.0-36.5); MEAN CORPUSCULAR VOLUME 89.2 fl (80.0-96.0); PLATELET COUNT, AUTOMATED 231 10^3/uL (150-450); RED BLOOD COUNT 4.98 10^6/uL (4.30-6.10); WHITE BLOOD COUNT 8.5 10^3/uL (4.0-10.0)
[2022-04-14 11:10] LABS: ERYTHROCYTE SEDIMENTATION RATE 15 mm/hr (0-15)
[2022-04-14 11:26] LABS: ALBUMIN 4.1 G/DL (3.2-5.2); ALKALINE PHOSPHATASE 63 U/L (46-116); ALT/SGPT 33 U/L (7.0-40); AST/SGOT 20 U/L (<34); BILIRUBIN,TOTAL 0.4 MG/DL (0.3-1.2); BLOOD UREA NITROGEN 9 MG/DL (9-23); CALCIUM LEVEL 9.5 MG/DL (8.5-10.1); CARBON DIOXIDE LEVEL 29 MMOL/L (20-31); CHLORIDE LEVEL 101 MMOL/L (98-107); CREATININE FOR GFR 0.62 MG/DL (0.70-1.30); GLOMERULAR FILTRATION RATE > 60.0 (>60); GLUCOSE, FASTING 239 MG/DL (60-100); POTASSIUM SERUM 4.5 MMOL/L (3.5-5.1); SODIUM LEVEL 139 MMOL/L (136-145); TOTAL PROTEIN 7.2 G/DL (5.7-8.2)
[2022-04-14 11:46] LABS: C REACTIVE PROTEIN QUANTITATIV < 0.40 MG/DL (<1.0)
== END ==
LOC: M LAB 10:24
PROVIDERS: ATTEND Internal Medicine Gastroenterology
DX: R94.5 Abnormal results of liver function studies (principal); K21.9 Gastro-esophageal reflux disease without esophagitis; K64.0 First degree hemorrhoids; K51.90 Ulcerative colitis, unspecified, without complications

== ENCOUNTER 2022-05-05 08:50 | Outpatient (CLI) | payer BC ==
[~2022-05-05] VITALS: Ht 180.3 cm; Wt 108.4 kg
[2022-05-05 08:59] VITALS: BP 129/74
[2022-05-05] MEDS ORDERED: INFLIXIMAB BIOSIMILAR 600 MG in NS 190 ML IV ONE (09:00)
[2022-05-05] MEDS ORDERED: ACETAMINOPHEN 650MG PO PRIOR TO INFUSION PO ONE (09:00)
[2022-05-05] MEDS ORDERED: NS 1,000 ML IV SCH (09:00)
== END 2022-05-05 10:40 | disposition home or self-care (01) ==
LOC: M INFU 08:50
PROVIDERS: ATTEND Internal Medicine Gastroenterology
DX: K51.90 Ulcerative colitis, unspecified, without complications (principal)
CPT/HCPCS: 96413; Q5103

== ENCOUNTER 2022-07-01 09:12 | Outpatient (CLI) | payer BC ==
[~2022-07-01] VITALS: Ht 182.9 cm; Wt 102.3 kg
[~2022-07-01 09:12] MED LIST changes: +ACETAMINOPHEN 650MG PO PRIOR TO INFUSION PO ONE; +INFLIXIMAB BIOSIMILAR 600 MG in NS 190 ML IV ONE; +NS 1,000 ML IV SCH; +TOPI-254 PO; -TOPI50TA9 PO
[2022-07-01 09:20] VITALS: BP 138/79
[2022-07-01 10:30] VITALS: BP 111/76
[2022-07-01 11:14] VITALS: BP 119/76
== END 2022-07-01 11:15 | disposition home or self-care (01) ==
LOC: M INFU 09:12
PROVIDERS: ATTEND Internal Medicine Gastroenterology
DX: K51.90 Ulcerative colitis, unspecified, without complications (principal)
CPT/HCPCS: 96413; Q5103

== ENCOUNTER 2022-08-26 08:50 | Outpatient (CLI) | payer BC ==
[~2022-08-26] VITALS: Ht 182.9 cm; Wt 103.6 kg
[2022-08-26 08:50] VITALS: BP 129/43
[~2022-08-26 08:50] MED LIST changes: -ACETAMINOPHEN 650MG PO PRIOR TO INFUSION PO ONE; -INFLIXIMAB BIOSIMILAR 600 MG in NS 190 ML IV ONE; -NS 1,000 ML IV SCH
[2022-08-26] MEDS ORDERED: INFLIXIMAB BIOSIMILAR 600 MG in NS 190 ML IV ONE (09:00)
[2022-08-26] MEDS ORDERED: ACETAMINOPHEN 650MG PO PRIOR TO INFUSION PO ONE (09:00)
[2022-08-26] MEDS ORDERED: NS 1,000 ML IV SCH (09:00)
[2022-08-26 09:50] VITALS: BP 134/83
[2022-08-26 10:45] VITALS: BP 129/77
== END 2022-08-26 10:45 ==
LOC: M INFU 08:50
PROVIDERS: ATTEND Internal Medicine Gastroenterology
DX: K51.90 Ulcerative colitis, unspecified, without complications (principal)
CPT/HCPCS: 96413; Q5103

== ENCOUNTER → 2022-10-19 | Outpatient (CLI) | payer BC ==
[2022-10-19 10:15] LABS: BILIRUBIN,DIRECT 0.2 MG/DL (<0.4); BILIRUBIN,TOTAL 0.5 MG/DL (0.3-1.2); TOTAL PROTEIN 6.9 G/DL (5.7-8.2)
== END ==
LOC: M LAB 08:36
PROVIDERS: ATTEND Internal Medicine Gastroenterology
DX: R94.5 Abnormal results of liver function studies (principal)

== ENCOUNTER → 2022-11-12 | Outpatient (CLI) | payer BC ==
[2022-11-12 18:36] LABS: HEMATOCRIT 44.6 % (42.0-52.0); MEAN CORPUSCULAR HEMOGLOBIN 29.9 pg (27.0-33.0); MEAN CORPUSCULAR HGB CONC 33.6 g/dl (32.0-36.5); PLATELET COUNT, AUTOMATED 278 10^3/uL (150-450); RED BLOOD COUNT 5.01 10^6/uL (4.30-6.10); WHITE BLOOD COUNT 9.6 10^3/uL (4.0-10.0)
[2022-11-12 19:00] LABS: C REACTIVE PROTEIN QUANTITATIV < 0.40 MG/DL (<1.0)
[2022-11-12 19:01] LABS: ALBUMIN 4.5 G/DL (3.2-5.2); ALKALINE PHOSPHATASE 69 U/L (46-116); ALT/SGPT 52 U/L (7.0-40); AST/SGOT 20 U/L (<34); BILIRUBIN,TOTAL 0.4 MG/DL (0.3-1.2); BLOOD UREA NITROGEN 9 MG/DL (9-23); CALCIUM LEVEL 9.5 MG/DL (8.5-10.1); CARBON DIOXIDE LEVEL 24 MMOL/L (20-31); CHLORIDE LEVEL 103 MMOL/L (98-107); GLOMERULAR FILTRATION RATE > 60.0 (>60); GLUCOSE, FASTING 283 MG/DL (60-100); POTASSIUM SERUM 3.7 MMOL/L (3.5-5.1); SODIUM LEVEL 138 MMOL/L (136-145); TOTAL PROTEIN 7.5 G/DL (5.7-8.2)
[2022-11-12 19:03] LABS: TOTAL 25(OH) VITAMIN D 44.8 NG/ML (20.0-100.0); VITAMIN B12 LEVEL 379 PG/ML (211-911)
[2022-11-12 19:33] LABS: ERYTHROCYTE SEDIMENTATION RATE 15 mm/hr (0-15)
== END ==
LOC: M WUC 15:04
PROVIDERS: ATTEND Nurse Practitioner Family
DX: K21.9 Gastro-esophageal reflux disease without esophagitis (principal); K51.90 Ulcerative colitis, unspecified, without complications; E56.9 Vitamin deficiency, unspecified

== ENCOUNTER 2022-12-16 08:35 | Outpatient (CLI) | payer BC ==
[~2022-12-16] VITALS: Ht 177.8 cm; Wt 109.0 kg
[2022-12-16 08:40] VITALS: BP 131/90; TEMP 97.1; O2SAT 96
[2022-12-16] MEDS ORDERED: INFLIXIMAB BIOSIMILAR 600 MG in NS 190 ML IV ONE (09:00)
[2022-12-16] MEDS ORDERED: ACETAMINOPHEN 650MG PO PRIOR TO INFUSION PO ONE (09:00)
[2022-12-16] MEDS ORDERED: NS 1,000 ML IV SCH (09:00)
[2022-12-16 09:47] VITALS: BP 123/82; TEMP 97.3; O2SAT 97
[2022-12-16 10:32] VITALS: BP 132/90; TEMP 97; O2SAT 98
== END 2022-12-16 10:30 | disposition home or self-care (01) ==
LOC: M INFU 08:35
PROVIDERS: ATTEND Internal Medicine Gastroenterology
DX: K51.90 Ulcerative colitis, unspecified, without complications (principal)
CPT/HCPCS: 96413; Q5103

== ENCOUNTER → 2023-01-19 | Outpatient (CLI) | payer BC ==
[~2023-01-19] MED LIST changes: +GLIP5TAB17 PO; -GLIP5TAB8 PO
[2023-01-19 10:13] LABS: HEMOGLOBIN A1c 7.7 % (4.0-6.0)
[2023-01-19 10:49] LABS: RHEUMATOID FACTOR QUANT < 3.5 IU/ML (<14)
[2023-01-19 10:51] LABS: FOLATE 23.7 NG/ML (>5.4); FREE T4 1.18 NG/DL (0.89-1.76); THYROID STIMULATING HORMONE 0.979 uIU/ML (0.55-4.78)
[2023-01-19 10:52] LABS: VITAMIN B12 LEVEL 470 PG/ML (211-911)
== END ==
LOC: M LAB 08:57
PROVIDERS: ATTEND Psychiatry & Neurology Neurology
DX: G62.9 Polyneuropathy, unspecified (principal)

== ENCOUNTER 2023-02-10 08:12 | Outpatient (CLI) | payer BC ==
[~2023-02-10] VITALS: Ht 180.3 cm; Wt 105.3 kg
[2023-02-10 09:00] VITALS: BP 136/84; O2SAT 98
[2023-02-10] MEDS ORDERED: INFLIXIMAB BIOSIMILAR 600 MG in NS 190 ML IV ONE (09:05)
[2023-02-10] MEDS ORDERED: ACETAMINOPHEN TAB 650MG DOSE (2X325MG) PO ONE (09:05)
[2023-02-10] MEDS ORDERED: NS 1,000 ML IV SCH (09:05)
[2023-02-10 10:20] VITALS: BP 115/81; O2SAT 98
[2023-02-10 10:53] VITALS: BP 144/84; O2SAT 99
== END 2023-02-10 10:55 ==
LOC: M INFU 08:12
PROVIDERS: ATTEND Internal Medicine Gastroenterology
DX: K51.90 Ulcerative colitis, unspecified, without complications (principal)
CPT/HCPCS: 96413; Q5103

== ENCOUNTER → 2023-05-11 | Outpatient (REF) | payer BC ==
[~2023-05-11] MED LIST changes: +TOPI-21 PO; -TOPI-254 PO
== END ==
LOC: M LAB REF 12:52
PROVIDERS: ATTEND Nurse Practitioner Family
DX: K21.9 Gastro-esophageal reflux disease without esophagitis (principal); K51.90 Ulcerative colitis, unspecified, without complications; E55.9 Vitamin D deficiency, unspecified

== ENCOUNTER → 2023-06-02 | Outpatient (CLI) | payer BC ==
[~2023-06-02] VITALS: Ht 180.3 cm; Wt 107.0 kg
[~2023-06-02] MED LIST changes: +ACETAMINOPHEN 650MG PO PRIOR TO INFUSION PO ONE; +NS 1,000 ML IV SCH
[2023-06-02 08:28] VITALS: BP 127/79; O2SAT 96
[2023-06-02] MEDS: INFLIXIMAB BIOSIMILAR 600 MG in NS 190 ML IV ONE (09:18)
[2023-06-02 09:33] VITALS: BP 133/80; O2SAT 98
[2023-06-02 10:24] VITALS: BP 140/89; O2SAT 99
== END ==
LOC: M INFU 08:09
PROVIDERS: ATTEND Internal Medicine Gastroenterology
DX: K51.90 Ulcerative colitis, unspecified, without complications (principal)
CPT/HCPCS: 96413; Q5103

== ENCOUNTER → 2023-06-16 | Outpatient (REF) | payer BC ==
[~2023-06-16] MED LIST changes: -ACETAMINOPHEN 650MG PO PRIOR TO INFUSION PO ONE; -NS 1,000 ML IV SCH
[2023-06-16 14:26] LABS: IRON (FE) 84 UG/DL (65-175); PERCENT SATURATION 26.6 % (19.7-50.0); TOTAL IRON BINDING CAPACITY 316 UG/DL (250-425)
[2023-06-16 14:28] LABS: FERRITIN 59.1 NG/ML (10.5-307.3)
[2023-06-16 15:06] LABS: HEPATITIS B CORE ANTIBODY IGM NEGATIVE (NEGATIVE)
[2023-06-16 15:07] LABS: HEPATITIS C VIRUS ABY INDEX 0.03 INDEX (<0.8)
== END ==
LOC: M LAB REF 12:49
PROVIDERS: ATTEND Nurse Practitioner Family
DX: K75.81 Nonalcoholic steatohepatitis (NASH) (principal)

== ENCOUNTER → 2023-06-24 | Outpatient (CLI) | payer BC | LOC: M RAD 07:10 | PROVIDERS: ATTEND Nurse Practitioner Family | DX: K75.81 Nonalcoholic steatohepatitis (NASH) (principal) ==

== ENCOUNTER → 2023-07-28 | Outpatient (CLI) | payer BC ==
[~2023-07-28] VITALS: Ht 180.3 cm; Wt 102.4 kg
[~2023-07-28] MED LIST changes: +ACETAMINOPHEN TAB 650MG DOSE (2X325MG) PO ONE; +NS 1,000 ML IV SCH
[2023-07-28 08:55] VITALS: BP 135/78; O2SAT 94
[2023-07-28] MEDS: INFLIXIMAB BIOSIMILAR 600 MG in NS 190 ML IV ONE (09:24)
[2023-07-28 10:34] VITALS: BP 150/80; O2SAT 97
== END ==
LOC: M INFU 08:49
PROVIDERS: ATTEND Internal Medicine Gastroenterology
DX: K51.90 Ulcerative colitis, unspecified, without complications (principal)
CPT/HCPCS: 96413; Q5103

== ENCOUNTER 2023-09-22 09:07 | Outpatient (CLI) | payer BC ==
[~2023-09-22] VITALS: Ht 180.3 cm; Wt 100.0 kg
[~2023-09-22 09:07] MED LIST changes: -ACETAMINOPHEN TAB 650MG DOSE (2X325MG) PO ONE; -NS 1,000 ML IV SCH
[2023-09-22 09:10] VITALS: BP 142/85; O2SAT 98
[2023-09-22] MEDS ORDERED: NS 1,000 ML IV SCH (09:30)
[2023-09-22] MEDS ORDERED: ACETAMINOPHEN 650MG PO PRIOR TO INFUSION PO ONE (09:30)
[2023-09-22] MEDS: INFLIXIMAB BIOSIMILAR 600 MG in NS 190 ML IV ONE (09:47)
[2023-09-22 10:15] VITALS: BP 133/80; O2SAT 100
[2023-09-22 11:00] VITALS: BP 131/87; O2SAT 98
== END 2023-09-22 11:00 ==
LOC: M INFU 09:07
PROVIDERS: ATTEND Internal Medicine Gastroenterology
DX: K51.90 Ulcerative colitis, unspecified, without complications (principal)
CPT/HCPCS: 96413; Q5103

== ENCOUNTER 2023-11-17 09:20 | Outpatient (CLI) | payer BC ==
[~2023-11-17] VITALS: Ht 177.8 cm; Wt 109.0 kg
[2023-11-17 09:20] VITALS: BP 130/79; O2SAT 100
[~2023-11-17 09:20] MED LIST changes: +NS 1,000 ML IV SCH
[2023-11-17] MEDS ORDERED: ACETAMINOPHEN 650MG PO PRIOR TO INFUSION PO ONE (09:30)
[2023-11-17] MEDS: INFLIXIMAB BIOSIMILAR 600 MG in NS 190 ML IV ONE (10:05)
[2023-11-17 11:14] VITALS: BP 138/88; O2SAT 99
== END 2023-11-17 11:15 ==
LOC: M INFU 09:20
PROVIDERS: ATTEND Internal Medicine Gastroenterology
DX: K51.90 Ulcerative colitis, unspecified, without complications (principal)
CPT/HCPCS: 96413; Q5103

== ENCOUNTER → 2023-11-30 | Outpatient (CLI) | payer BC ==
[~2023-11-30] MED LIST changes: -NS 1,000 ML IV SCH
[2023-11-30 13:39] LABS: HEMOGLOBIN 15.6 g/dl (13.5-17.5); MEAN CORPUSCULAR HEMOGLOBIN 29.5 pg (27.0-33.0); MEAN CORPUSCULAR HGB CONC 33.2 g/dl (32.0-36.5); PLATELET COUNT, AUTOMATED 255 10^3/uL (150-450); RED BLOOD COUNT 5.28 10^6/uL (4.30-6.10); WHITE BLOOD COUNT 9.9 10^3/uL (4.0-10.0)
[2023-11-30 13:44] LABS: ERYTHROCYTE SEDIMENTATION RATE 10 mm/hr (0-15)
[2023-11-30 13:57] LABS: C REACTIVE PROTEIN QUANTITATIV < 0.40 MG/DL (<1.0)
[2023-11-30 13:59] LABS: ALBUMIN 4.3 G/DL (3.2-5.2); ALKALINE PHOSPHATASE 63 U/L (46-116); ALT/SGPT 30 U/L (7.0-40); AST/SGOT 17 U/L (<34); BILIRUBIN,TOTAL 0.6 MG/DL (0.3-1.2); BLOOD UREA NITROGEN 10 MG/DL (9-23); CALCIUM LEVEL 9.4 MG/DL (8.5-10.1); CARBON DIOXIDE LEVEL 31 MMOL/L (20-31); CHLORIDE LEVEL 104 MMOL/L (98-107); CREATININE FOR GFR 0.65 MG/DL (0.70-1.30); GLOMERULAR FILTRATION RATE > 60.0 (>60); GLUCOSE, FASTING 112 MG/DL (60-100); SODIUM LEVEL 141 MMOL/L (136-145); TOTAL PROTEIN 7.7 G/DL (5.7-8.2)
== END ==
LOC: M LAB 12:58
PROVIDERS: ATTEND Internal Medicine Gastroenterology
DX: K21.9 Gastro-esophageal reflux disease without esophagitis (principal); K51.90 Ulcerative colitis, unspecified, without complications; R94.5 Abnormal results of liver function studies; K76.0 Fatty (change of) liver, not elsewhere classified

== ENCOUNTER → 2023-12-01 | Outpatient (REF) | payer BC | LOC: M LAB REF 09:25 | PROVIDERS: ATTEND Nurse Practitioner Family | DX: K21.9 Gastro-esophageal reflux disease without esophagitis (principal); K51.90 Ulcerative colitis, unspecified, without complications; R94.5 Abnormal results of liver function studies; K76.0 Fatty (change of) liver, not elsewhere classified ==

== ENCOUNTER → 2023-12-21 | Outpatient (CLI) | payer BC | LOC: M LAB 16:59 | PROVIDERS: ATTEND Nurse Practitioner Family | DX: Z53.20 Procedure and treatment not carried out because of patient's decision for unspecified reasons (principal) ==

== ENCOUNTER 2024-01-12 09:10 | Outpatient (CLI) | payer BC ==
[~2024-01-12] VITALS: Ht 177.8 cm; Wt 104.5 kg
[~2024-01-12 09:10] MED LIST changes: +GABA-1172 PO; -GABA-282 PO; +NS 1,000 ML IV SCH
[2024-01-12 09:30] VITALS: BP 128/81; O2SAT 97
[2024-01-12] MEDS ORDERED: ACETAMINOPHEN 650MG PO PRIOR TO INFUSION PO ONE (09:30)
[2024-01-12] MEDS: INFLIXIMAB BIOSIMILAR 1,000 MG in NS 150 ML IV ONE (10:38)
[2024-01-12 10:55] VITALS: BP 130/87; O2SAT 97
[2024-01-12 11:43] VITALS: BP 132/87; O2SAT 99
== END 2024-01-12 11:45 ==
LOC: M INFU 09:10
PROVIDERS: ATTEND Internal Medicine Gastroenterology
DX: K51.90 Ulcerative colitis, unspecified, without complications (principal)
CPT/HCPCS: 96413; Q5103

== ENCOUNTER 2024-03-08 09:00 | Outpatient (CLI) | payer BC ==
[~2024-03-08] VITALS: Ht 177.8 cm; Wt 105.9 kg
[2024-03-08 09:00] VITALS: BP 150/79; O2SAT 100
[~2024-03-08 09:00] MED LIST changes: -NS 1,000 ML IV SCH
[2024-03-08] MEDS ORDERED: ACETAMINOPHEN 650MG PO PRIOR TO INFUSION PO ONE (09:30)
[2024-03-08] MEDS ORDERED: NS 1,000 ML IV SCH (09:30)
[2024-03-08] MEDS: INFLIXIMAB BIOSIMILAR 1,000 MG in NS 150 ML IV ONE (10:00)
[2024-03-08 10:16] VITALS: BP 143/85; O2SAT 97
[2024-03-08 11:00] VITALS: BP 132/84; O2SAT 98
== END 2024-03-08 11:00 ==
LOC: M INFU 09:00
PROVIDERS: ATTEND Internal Medicine Gastroenterology
DX: K51.90 Ulcerative colitis, unspecified, without complications (principal)
CPT/HCPCS: 96365; Q5103

== ENCOUNTER → 2024-03-14 | Outpatient (REF) | payer BC ==
[2024-03-14 14:18] LABS: C REACTIVE PROTEIN QUANTITATIV < 0.50 MG/DL (<1.0)
[2024-03-14 14:21] LABS: VITAMIN B12 LEVEL 306 PG/ML (211-911)
== END ==
LOC: M LAB REF 12:07
PROVIDERS: ATTEND Internal Medicine
DX: R94.5 Abnormal results of liver function studies (principal); K76.0 Fatty (change of) liver, not elsewhere classified; E56.9 Vitamin deficiency, unspecified

== ENCOUNTER → 2024-05-03 | Outpatient (CLI) | payer BC ==
[~2024-05-03] VITALS: Ht 177.8 cm; Wt 107.0 kg
[~2024-05-03] MED LIST changes: +NS (Normal Saline) 0.9% 1,000 ML IV SCH
[2024-05-03 09:40] VITALS: BP 133/80; O2SAT 98
[2024-05-03] MEDS: ACETAMINOPHEN 650MG PO PRIOR TO INFUSION PO ONE (10:06)
[2024-05-03] MEDS: INFLIXIMAB BIOSIMILAR 1,000 MG in NS 150 ML IV ONE (10:07)
[2024-05-03 11:10] VITALS: BP 125/81; O2SAT 96
== END ==
LOC: M INFU 09:35
PROVIDERS: ATTEND Internal Medicine Gastroenterology
DX: K51.90 Ulcerative colitis, unspecified, without complications (principal)
CPT/HCPCS: 96413; Q5103

== ENCOUNTER 2024-06-28 08:45 | Outpatient (CLI) | payer BC ==
[~2024-06-28] VITALS: Ht 177.8 cm; Wt 105.8 kg
[2024-06-28 08:44] VITALS: BP 150/87; TEMP 97.8; O2SAT 98
[~2024-06-28 08:45] MED LIST changes: -NS (Normal Saline) 0.9% 1,000 ML IV SCH
[2024-06-28] MEDS: INFLIXIMAB BIOSIMILAR 1,000 MG in NS 150 ML IV ONE (09:25)
[2024-06-28 09:40] VITALS: BP 143/83; TEMP 97; O2SAT 99
[2024-06-28 10:30] VITALS: BP 132/87; O2SAT 100
[2024-06-28] MEDS ORDERED: NS (Normal Saline) 0.9% 1,000 ML IV SCH (10:30)
[2024-06-28] MEDS: ACETAMINOPHEN 650MG PO PRIOR TO INFUSION PO ONE (10:31)
== END 2024-06-28 10:35 ==
LOC: M INFU 08:45
PROVIDERS: ATTEND Internal Medicine Gastroenterology
DX: K51.90 Ulcerative colitis, unspecified, without complications (principal)
CPT/HCPCS: 96413; Q5103

== ENCOUNTER 2024-08-23 08:32 | Outpatient (CLI) | payer BC ==
[~2024-08-23] VITALS: Ht 177.8 cm; Wt 104.0 kg
[~2024-08-23 08:32] MED LIST changes: -FLOM0.4C39 PO; +TAMS-18 PO
[2024-08-23 09:05] VITALS: BP 140/83; O2SAT 99
[2024-08-23] MEDS: INFLIXIMAB BIOSIMILAR 1,000 MG in NS 150 ML IV ONE (10:11)
[2024-08-23 10:31] VITALS: BP 137/89; O2SAT 100
[2024-08-23 11:10] VITALS: BP 138/84; O2SAT 99
== END 2024-08-23 11:15 | disposition home or self-care (01) ==
LOC: M INFU 08:32
PROVIDERS: ATTEND Internal Medicine Gastroenterology
DX: K51.90 Ulcerative colitis, unspecified, without complications (principal)
CPT/HCPCS: 96365; Q5103

== ENCOUNTER 2024-10-18 08:05 | Outpatient (CLI) | payer BC ==
[~2024-10-18] VITALS: Ht 180.3 cm; Wt 104.5 kg
[2024-10-18 09:00] VITALS: BP 113/77; O2SAT 100
[2024-10-18] MEDS ORDERED: ACETAMINOPHEN 650MG PO PRIOR TO INFUSION PO ONE (09:00)
[2024-10-18] MEDS ORDERED: NS (Normal Saline) 0.9% 1,000 ML IV SCH (09:00)
[2024-10-18] MEDS: INFLIXIMAB BIOSIMILAR 1,000 MG in NS 150 ML IV ONE (10:02)
[2024-10-18 11:15] VITALS: BP 114/78; O2SAT 98
[2024-10-18 11:20] VITALS: BP 114/78; TEMP 36.7; O2SAT 98
== END 2024-10-18 11:20 | disposition home or self-care (01) ==
LOC: M INFU 08:05
PROVIDERS: ATTEND Internal Medicine Gastroenterology
DX: K51.90 Ulcerative colitis, unspecified, without complications (principal); R19.5 Other fecal abnormalities; R19.7 Diarrhea, unspecified
CPT/HCPCS: 36415; 80230; 96413; Q5103

== ENCOUNTER 2024-12-13 10:18 | Outpatient (CLI) | payer BC ==
[~2024-12-13] VITALS: Ht 180.3 cm; Wt 102.3 kg
[2024-12-13 10:25] VITALS: BP 145/85; O2SAT 99
[2024-12-13] MEDS ORDERED: NS (Normal Saline) 0.9% 1,000 ML IV SCH (10:30)
[2024-12-13] MEDS: ACETAMINOPHEN 650MG PO PRIOR TO INFUSION PO ONE (10:31)
[2024-12-13] MEDS: INFLIXIMAB BIOSIMILAR 1,000 MG in NS 150 ML IV ONE (11:16)
[2024-12-13 11:21] VITALS: BP 144/74; TEMP 97.6; O2SAT 98
[2024-12-13 11:31] VITALS: BP 144/74; TEMP 97.6; O2SAT 98
== END 2024-12-13 12:20 ==
LOC: M INFU 10:18
PROVIDERS: ATTEND Internal Medicine Gastroenterology
DX: K51.90 Ulcerative colitis, unspecified, without complications (principal)
CPT/HCPCS: 96413; Q5103

== ENCOUNTER 2025-02-07 07:59 | Outpatient (CLI) | payer BC ==
[~2025-02-07] VITALS: Ht 177.8 cm; Wt 100.0 kg
[2025-02-07 08:15] VITALS: BP 140/85; O2SAT 99
[2025-02-07] MEDS: INFLIXIMAB BIOSIMILAR 1,000 MG in NS 150 ML IV ONE (08:57)
[2025-02-07] MEDS ORDERED: NS (Normal Saline) 0.9% 1,000 ML IV SCH (09:00)
[2025-02-07 10:05] VITALS: BP 140/85; TEMP 36.9; O2SAT 99
[2025-02-07 10:12] VITALS: BP 122/81; O2SAT 100
== END 2025-02-07 10:05 | disposition home or self-care (01) ==
LOC: M INFU 07:59
PROVIDERS: ATTEND Internal Medicine Gastroenterology
DX: K51.90 Ulcerative colitis, unspecified, without complications (principal)
CPT/HCPCS: 96413; Q5103

== ENCOUNTER 2025-04-04 10:03 | Outpatient (CLI) | payer BC ==
[~2025-04-04] VITALS: Ht 180.3 cm; Wt 97.3 kg
[2025-04-04 10:30] VITALS: BP 135/78; O2SAT 100
[2025-04-04] MEDS ORDERED: NS (Normal Saline) 0.9% 1,000 ML IV SCH (10:30)
[2025-04-04] MEDS: INFLIXIMAB BIOSIMILAR 1,000 MG in NS 150 ML IV ONE (11:18)
[2025-04-04 11:32] VITALS: BP 103/74; O2SAT 98
[2025-04-04 12:25] VITALS: BP 115/71; O2SAT 98
== END 2025-04-04 12:25 | disposition home or self-care (01) ==
LOC: M INFU 10:03
PROVIDERS: ATTEND Internal Medicine Gastroenterology
DX: K51.90 Ulcerative colitis, unspecified, without complications (principal)
CPT/HCPCS: 96413; Q5103